=== PATIENT | male | born 1960 ===

== ENCOUNTER 2018-08-11 08:23 | Emergency (ER) | payer BC, MEDICAID ==
[2018-08-11 08:44] VITALS: BMI 37.1
[2018-08-11 08:46] VITALS: RESP 20
[2018-08-11] MEDS ORDERED: Dexamethasone 10 MG in Sodium Chloride 0.9% 50 ML IV STA (09:22)
[2018-08-11] MEDS ORDERED: diaZEpam 10 mg/2 ml Inj IVP STA (09:27)
--- NOTE | 2018-08-11 10:46 | ED PDOC ---
HPI: Back Time Seen by Provider: 08/11/18 08:58 Chief Complaint (Nursing): Back Pain Chief Complaint (Provider): Back Pain History Per: Patient History/Exam Limitations: no limitations Onset/Duration Of Symptoms: Days (x2 days ago) Current Symptoms Are (Timing): Still Present Additional Complaint(s): Declan Thurston is a 58 year old male with a past medical history of HTN and HLD, who presents to the emergency department, complaining of sudden onset of back pain while carrying groceries, x2 days ago. Patient states the pain is sharp and in lower back that sends shocks like pain to both legs causing him to drop to his knees. Patient states since Thursday he is able to walk with pain and difficulty but has avoided carrying anything. He reports he had one similar episode and was diagnosed with a bulging disc but has had no problems since 2007. Patient states he has that he has not had any accident or any other medical problems. He states he has no urinary or fecal incontinence or retention, weakness or numbness. PMD: [place] Past Medical History Reviewed: Historical Data, Nursing Documentation, Vital Signs Vital Signs: Last Vital Signs Temp 97.8 F 08/11/18 08:44 Pulse 84 08/11/18 08:44 Resp 20 08/11/18 08:44 BP 142/88 08/11/18 08:44 Pulse Ox 97 08/11/18 08:44 - Medical History PMH: HTN, Hypercholesterolemia - Surgical History Surgical History: No Surg Hx - Family History Family History: States: Unknown Family Hx - Home Medications Home Medications: Ambulatory Orders Medication Instructions Recorded Cyclobenzaprine [Cyclobenzaprine 10 mg PO BID #8 tab 08/11/18 HCl] RX: Naproxen 500 mg PO BID #30 tab 08/11/18 - Allergies Allergies/Adverse Reactions: Allergies Allergy/AdvReac Type Severity Reaction Status Date / Time No Known Allergies Allergy Verified 08/11/18 09:21 Review of Systems ROS Statement: Except As Marked, All Systems Reviewed And Found Negative Genitourinary Male: Negative for: Incontinence (urinary or fecal ) Musculoskeletal: Positive for: Back Pain, Leg Pain (bilaterally) Neurological: Negative for: Weakness, Numbness Physical Exam - Reviewed Nursing Documentation Reviewed: Yes Vital Signs Reviewed: Yes - Physical Exam Appears: Positive for: Well, No Acute Distress Head Exam: Positive for: ATRAUMATIC, NORMOCEPHALIC Skin: Positive for: Normal Color Cardiovascular/Chest: Positive for: Regular Rate, Rhythm. Negative for: Murmur Respiratory: Positive for: Normal Breath Sounds. Negative for: Respiratory Distress Back: Positive for: Vertebral Tenderness (ttp to lumbar spine; (-) palpable step offs or bulges) Extremity: Positive for: Other (Full strength of lowe extremities; sensation fully intact in bilateral feet; (-) numbness of inner thighs; ) - ECG O2 Sat by Pulse Oximetry: 97 (RA) Pulse Ox Interpretation: Normal Medical Decision Making Medical Decision Making: Time: 921 A/P: Work up for bulging disc and lumbar spine vs. other lumbar spine pathology. --CT lumbar spine without xray --Dexamethasone 10 mg IV --Valium 5 mg PO --Toradol 30 mg IVP --Reassess patient [address] FINDINGS: VERTEBRAE: There is normal alignment of the lumbar vertebral bodies. There is normal lumbar lordosis. There is no acute fracture, spondylolysis or spondylolisthesis. Bone mineralization is normal. DISCS/SPINAL CANAL/NEURAL FORAMINA: Evaluation of the discs and spinal canal is limited on noncontrast CT examination. Allowing for this, L1-2: Left foraminal and far lateral disc protrusion. No central spinal canal stenosis. Mild bilateral facet arthropathy contribute to mild left neural foraminal narrowing. L2-3: Mild posterior disc bulge without neural foraminal narrowing or central spinal canal stenosis. L3-4: Mild posterior disc bulge without neural foraminal narrowing or central spinal canal stenosis. L4-5: Mild posterior disc bulge without central spinal canal stenosis. Mild bilateral facet arthropathy contribute to mild neural foraminal narrowing. L5-S1: Broad-based central disc protrusion indents the ventral thecal sac without central spinal canal stenosis. No neural foraminal narrowing. PARASPINAL SOFT TISSUES: Unremarkable. OTHER FINDINGS: None. IMPRESSION: No acute fracture, spondylolysis or spondylolisthesis. Mild multilevel degenerative disc disease, worse at L5-S1 with a broad-based central disc protrusion without central spinal canal stenosis or neural foraminal narrowing. Scribe Attestation: Documented by Hernandez Villavicencio, acting as a scribe for Brenda Schaffer MD. Provider Scribe Attestation: All medical record entries made by the Scribe were at my direction and personally dictated by me. I have reviewed the chart and agree that the record accurately reflects my personal performance of the history, physical exam, medical decision making, and the department course for this patient. I have also personally directed, reviewed, and agree with the discharge instructions and disposition. Disposition - Clinical Impression Clinical Impression: Acute back pain, Intervertebral disc protrusion - Disposition Referrals: Mike Montero MD [Staff Provider] - Disposition Time: 16:07 Condition: IMPROVED Additional Instructions: Take medications as needed for pain. DO NOT DRIVE IF YOU HAVE TAKEN FLEXERIL. Follow up with spinal surgeon or neurosurgeon or discuss with PMD for referral. Prescriptions: Cyclobenzaprine [Cyclobenzaprine HCl] 10 mg PO BID #8 tab RX: Naproxen 500 mg PO BID #30 tab Instructions: Herniated Disc (DC) Forms: [employer] (Martiniquais), [facility] ED School/Work Excuse Print Language: NIGERIAN
--- NOTE | 2018-08-11 15:25 | CT ---
Date of service: 08/11/2018 PROCEDURE: CT Lumbar Spine without contrast HISTORY: lower back pain COMPARISON: None available. TECHNIQUE: Axial computed tomography images were obtained of the lumbar spine without the use of intravenous contrast. Coronal and sagittal reformatted images were created and reviewed. Radiation dose: Total exam DLP = 1275.58 mGy-cm. This CT exam was performed using one or more of the following dose reduction techniques: Automated exposure control, adjustment of the mA and/or kV according to patient size, and/or use of iterative reconstruction technique. FINDINGS: VERTEBRAE: There is normal alignment of the lumbar vertebral bodies. There is normal lumbar lordosis. There is no acute fracture, spondylolysis or spondylolisthesis. Bone mineralization is normal. DISCS/SPINAL CANAL/NEURAL FORAMINA: Evaluation of the discs and spinal canal is limited on noncontrast CT examination. Allowing for this, L1-2: Left foraminal and far lateral disc protrusion. No central spinal canal stenosis. Mild bilateral facet arthropathy contribute to mild left neural foraminal narrowing. L2-3: Mild posterior disc bulge without neural foraminal narrowing or central spinal canal stenosis. L3-4: Mild posterior disc bulge without neural foraminal narrowing or central spinal canal stenosis. L4-5: Mild posterior disc bulge without central spinal canal stenosis. Mild bilateral facet arthropathy contribute to mild neural foraminal narrowing. L5-S1: Broad-based central disc protrusion indents the ventral thecal sac without central spinal canal stenosis. No neural foraminal narrowing. PARASPINAL SOFT TISSUES: Unremarkable. OTHER FINDINGS: None. IMPRESSION: No acute fracture, spondylolysis or spondylolisthesis. Mild multilevel degenerative disc disease, worse at L5-S1 with a broad-based central disc protrusion without central spinal canal stenosis or neural foraminal narrowing.
[2018-08-11 15:57] VITALS: BP 139/89; PULSE 92; TEMP 97.5
[2018-08-16 05:14] VITALS: O2SAT 97
== END 2018-08-11 15:51 | disposition home or self-care (01) ==
LOC: H.ER 08:23
DX: M54.5 Low back pain (principal); M51.26 Other intervertebral disc displacement, lumbar region; I10 Essential (primary) hypertension; E78.00 Pure hypercholesterolemia, unspecified
CPT/HCPCS: 72131; 96374; 96375; 99283; J1100; J1885; J2270